=== PATIENT | female | born 1995 | race African-American/Black ===

== ENCOUNTER 2018-06-14 13:46 | Emergency (ER) | payer SELFPAY ==
[2018-06-14] MEDS ORDERED: HYDROcodone/Acetaminophen 5/325 mg Tablet ONE (14:43)
[2018-06-14] MEDS ORDERED: Benzonatate 100 MG CAP ONE (14:44)
[2018-06-14] MEDS ORDERED: Dexamethasone 4 MG TAB ONE (14:44)
--- NOTE | 2018-06-14 14:44 | RAD ---
CHEST PA AND LATERAL: History: 23-year-old female with history of cough for four days. FINDINGS: Heart size is within normal limits. The lungs are clear. No pneumonia, edema, or pleural effusion. IMPRESSION: No acute intrathoracic disease. No evidence for pneumonia. POS: [facility]
== END 2018-06-14 15:10 | disposition home or self-care (01) ==
LOC: MADERS 13:46
DX: J20.8 Acute bronchitis due to other specified organisms (principal)
CPT/HCPCS: 71046; J8540